=== PATIENT | female | born 1990 | race Two or more races ===

== ENCOUNTER 2024-12-17 08:24 | Emergency (ER) | payer OTHER ==
[~2024-12-17] VITALS: Ht 152.4 cm; Wt 54.4 kg
[2024-12-17] MEDS ORDERED: KETOROLAC TROMETHAMINE 30 MG VIAL IM STA (09:06)
[2024-12-17] MEDS ORDERED: DEXAMETHASONE SODIUM PHOSPHATE 4 MG/ML VIAL IM STA (09:06)
[2024-12-17] MEDS ORDERED: DEXAMETHASONE SODIUM PHOSPHATE 4 MG/ML VIAL ONE (09:07)
[2024-12-17] MEDS ORDERED: KETOROLAC TROMETHAMINE 30 MG VIAL ONE (09:07)
[2024-12-17] MEDS ORDERED: NAPROXEN500 MG PO (11:28)
== END 2024-12-17 13:25 | disposition home or self-care (01) ==
LOC: ER 08:24
DX: M54.50 Low back pain, unspecified (principal); M79.605 Pain in left leg; M79.604 Pain in right leg